=== PATIENT | female | born 1985 | race American Indian/Alaskan Native ===

== ENCOUNTER 2016-11-12 14:13 | Emergency (ER) | payer SELFPAY ==
--- NOTE | 2016-11-12 15:23 | Emergency Department Report ---
Chief Complaint: Dizziness Stated Complaint: DIZZINESS/DEHYDRATION/EMESIS/SOB Time Seen by Provider: 11/12/16 15:22 - HPI History of Present Illness: Patient here complaining of dizziness and vomiting 5 days. She says she is unable to tolerate anything by mouth. She says she hasn't had a menstrual cycle started 2 months. Denies any urinary burning or frequency but report urgency. She reports abdominal and back pain that crampy at 9 out of 10. She says she feels feverish. Denies any vaginal bleeding or discharge. - ROS Review of Systems: All systems are negative unless stated in HPI above - Exam Vital Signs: Vital Signs 11/12/16 14:57 Temperature 98.3 F Pulse Rate 80 Respiratory 18 Rate Blood Pressure 121/90 O2 Sat by Pulse 100 Oximetry Physical Exam: Gen: This is a 31-year-old female well-nourished well-developed in no acute distress. LUNGS: CTAB. Normal work of breathing CV:S1S2. RRR GI:NTTP in all Quadrants. NL bowel sounds in all quadrants. no cva tenderness. MSE screening note: Focused history and physical exam performed. Due to findings the following was ordered:see mdm ED Medical Decision Making - Medical Decision Making Medical decision making: Patient seen by provider in triage area. Appropriate protocol activated and patient to main ED to be seen by physician. ED Disposition for MSE Condition: Stable
[2016-11-12 15:46] LABS: Basophils % (Auto) 0.4 % (0.0-1.8); Eosinophils % (Auto) 0.4 % (0.0-4.3); Hematocrit 41.6 % (30.3-42.9); Hemoglobin 14.1 gm/dl (10.1-14.3); Mean Corpuscular HGB Conc 34 % (30-34); Mean Corpuscular Hemoglobin 30 pg (28-32); Mean Corpuscular Volume 88 fl (79-97); Platelet Count 283 K/mm3 (140-440); Red Blood Count 4.74 M/mm3 (3.65-5.03); White Blood Count 5.3 K/mm3 (4.5-11.0)
[2016-11-12 16:29] LABS: Amylase 90 units/L (27-131); Blood Urea Nitrogen 10 mg/dL (7-17); Calcium 9.5 mg/dL (8.4-10.2); Carbon Dioxide 22 mmol/L (22-30); Chloride 96.4 mmol/L (98-107); Glucose 96 mg/dL (65-100); Lipase 20 units/L (13-60); Potassium 3.6 mmol/L (3.6-5.0); Sodium 136 mmol/L (137-145)
[2016-11-12 16:31] LABS: Anion Gap 21 mmol/L
[2016-11-12 16:34] LABS: Bilirubin,Urine NEG (Negative); Blood,Urine NEG (Negative); Ketones,Urine 80 mg/dL (Negative); Leukocyte Esterase,Urine NEG (Negative); Mucus,Urine 3+ /HPF; Nitrite,Urine NEG (Negative); Urobilinogen,Urine < 2.0 mg/dL (<2.0)
[2016-11-12] MEDS ORDERED: ZOFRAN IV ONE (20:30)
[2016-11-12] MEDS ORDERED: TYLENOL PO ONE (20:31)
--- NOTE | 2016-11-12 20:32 | Emergency Department Report ---
ED Female HPI - General Chief complaint: Dizziness Stated complaint: DIZZINESS/DEHYDRATION/EMESIS/SOB Time Seen by Provider: 11/12/16 15:22 Source: patient, RN notes reviewed Mode of arrival: Ambulatory Limitations: No Limitations - History of Present Illness Initial comments: This is a 31-year-old female, previously unknown to me. Last menstrual period is September 17. She is 3, para 2. Has a past medical history of asthma. No private OB/ [facility] doctor. Patient presents to the ER with nausea, vomiting, inability to tolerate liquid feeds, unintentional weight loss. Symptoms are constant. They've been going on for the past 5 days. They worsen when she attempts to eat and her drink. She admits to mild lower abdominal cramping, no vaginal bleeding, no right lower quadrant pain. No irritative or obstructive urinary symptoms. MD Complaint: pelvic pain -: Gradual, days(s) Severity: mild Quality: cramping Consistency: intermittent Improves with: other (rest) Worsens with: other (eating) Are you Now?: Yes Associated Symptoms: abdominal pain, nausea/vomiting, loss of appetite, weakness - Related Data Sexually active: Yes Previous Rx's Medication Instructions Recorded Last Taken Type Doxylamine/Pyridoxine HCl 1 each PO QHS PRN #30 tablet. 11/13/16 Unknown Rx [Mando Serra 10-10 mg Tablet] Vit W-Ca,Fe,FA(<1 mg) 1 each PO QDAY #30 tablet 11/13/16 Unknown Rx [ Vitamins] Allergies Allergy/AdvReac Type Severity Reaction Status Date / Time Penicillins Allergy Unknown Verified 08/15/13 19:12 ED Review of Systems ROS: Stated complaint: DIZZINESS/DEHYDRATION/EMESIS/SOB Other details as noted in HPI Constitutional: malaise. denies: weakness Eyes: denies: vision change ENT: denies: epistaxis Respiratory: denies: cough Cardiovascular: denies: chest pain Gastrointestinal: nausea, vomiting Genitourinary: denies: dysuria Musculoskeletal: as per HPI Skin: as per HPI Neurological: as per HPI, weakness Psychiatric: as per HPI ED Past Medical Hx - Past Medical History Hx Hypertension: No Hx Congestive Heart Failure: No Hx Diabetes: No Hx Deep Vein Thrombosis: No Hx Renal Disease: No Hx Sickle Cell Disease: No Hx Seizures: No Hx Asthma: Yes (albuterol last used over 1yr ago) Hx COPD: No Hx HIV: No Additional medical history: herniated disc - Surgical History Past Surgical History?: No - Social History Smoking Status: Current Every Day Smoker Substance Use Type: None - Medications Home Medications: Home Medications Medication Instructions Recorded Confirmed Last Taken Type Doxylamine/Pyridoxine HCl 1 each PO QHS PRN #30 tablet. 11/13/16 Unknown Rx [Diclegis Dr 10-10 mg Tablet] Vit W-Ca,Fe,FA(<1 mg) 1 each PO QDAY #30 tablet 11/13/16 Unknown Rx [ Vitamins] ED Physical Exam - General Limitations: No Limitations General appearance: alert, in no apparent distress - Head Head exam: Present: atraumatic, normocephalic - Eye Eye exam: Present: normal appearance, EOMI. Absent: nystagmus - ENT ENT exam: Present: normal exam, normal orophraynx, mucous membranes moist - Neck Neck exam: Present: normal inspection - Respiratory Respiratory exam: Present: normal lung sounds bilaterally. Absent: respiratory distress, wheezes, rales, rhonchi, stridor, chest wall tenderness - Cardiovascular Cardiovascular Exam: Present: regular rate, normal rhythm, normal heart sounds. Absent: bradycardia, tachycardia, irregular rhythm, systolic murmur, diastolic murmur, rubs, gallop - GI/Abdominal GI/Abdominal exam: Present: soft, normal bowel sounds. Absent: distended, tenderness, guarding, rebound, rigid, pulsatile mass - External exam: Present: normal external exam Speculum exam: Present: normal speculum exam. Absent: vaginal bleeding Bi-manual exam: Present: normal bi-manual exam, other (during the gynecologic examination, I am escorted by nurse JL SILVERMAN). Absent: cervical motion tendernes, adnexal tenderness, adnexal mass, uterine enlargement, uterine tenderness - Extremities Exam Extremities exam: Present: normal inspection, full ROM, normal capillary refill. Absent: tenderness, pedal edema, joint swelling, calf tenderness - Back Exam Back exam: Present: normal inspection, full ROM. Absent: tenderness, CVA tenderness (R), CVA tenderness (L), muscle spasm, paraspinal tenderness, vertebral tenderness - Neurological Exam Neurological exam: Present: alert, oriented X3, normal gait (normal heel-to- garcia. No pass pointing. Negative pronator drift.), other (Extraocular movements intact. Tongue midline. No facial droop. Facial sensation intact to light touch in the V1, V2, V3 distribution bilaterally. 5 and 5 strength in 4 extremities.. Sensation is intact to light touch in 4 extremities.). Absent : motor sensory deficit - Psychiatric Psychiatric exam: Present: normal affect, normal mood - Skin Skin exam: Present: warm, dry, intact, normal color. Absent: rash ED Course Vital Signs 11/12/16 11/12/16 11/12/16 14:57 18:06 19:04 Temperature 98.3 F Pulse Rate 80 77 Respiratory 18 16 Rate Blood Pressure 121/90 Blood Pressure 106/70 [Left] O2 Sat by Pulse 100 100 100 Oximetry 11/12/16 11/12/16 11/12/16 19:05 19:11 19:14 Temperature Pulse Rate Respiratory Rate Blood Pressure 116/67 116/67 116/67 Blood Pressure [Left] O2 Sat by Pulse 100 100 100 Oximetry 11/12/16 11/12/16 11/12/16 19:15 19:21 19:23 Temperature Pulse Rate Respiratory Rate Blood Pressure 108/68 108/68 108/68 Blood Pressure [Left] O2 Sat by Pulse 100 94 Oximetry 11/12/16 11/12/16 11/12/16 19:25 19:30 19:35 Temperature Pulse Rate Respiratory Rate Blood Pressure 108/68 117/76 117/76 Blood Pressure [Left] O2 Sat by Pulse 98 100 100 Oximetry 11/12/16 11/12/16 11/12/16 19:41 19:45 19:51 Temperature Pulse Rate Respiratory Rate Blood Pressure 117/76 117/76 117/76 Blood Pressure [Left] O2 Sat by Pulse 100 100 100 Oximetry 11/12/16 11/12/16 11/12/16 19:55 20:00 20:05 Temperature Pulse Rate Respiratory Rate Blood Pressure 117/76 106/65 108/68 Blood Pressure [Left] O2 Sat by Pulse 100 100 100 Oximetry 11/12/16 11/12/16 11/12/16 20:11 20:15 20:21 Temperature Pulse Rate Respiratory Rate Blood Pressure 108/68 104/62 104/62 Blood Pressure [Left] O2 Sat by Pulse 100 100 100 Oximetry 11/12/16 11/12/16 11/12/16 20:25 20:30 20:35 Temperature Pulse Rate Respiratory Rate Blood Pressure 104/62 119/75 119/75 Blood Pressure [Left] O2 Sat by Pulse 95 100 100 Oximetry 11/12/16 11/12/16 11/12/16 20:41 20:45 20:50 Temperature Pulse Rate Respiratory Rate Blood Pressure 119/75 127/103 127/103 Blood Pressure [Left] O2 Sat by Pulse 100 100 100 Oximetry 11/12/16 11/12/16 11/12/16 20:57 21:01 21:05 Temperature Pulse Rate Respiratory Rate Blood Pressure 127/103 126/102 127/103 Blood Pressure [Left] O2 Sat by Pulse 100 99 100 Oximetry 11/12/16 11/12/16 11/12/16 21:11 21:15 21:21 Temperature Pulse Rate Respiratory Rate Blood Pressure 127/103 116/74 116/74 Blood Pressure [Left] O2 Sat by Pulse 100 100 100 Oximetry 11/12/16 11/12/16 11/12/16 21:25 21:30 21:35 Temperature Pulse Rate Respiratory Rate Blood Pressure 116/74 104/59 104/59 Blood Pressure [Left] O2 Sat by Pulse 100 100 100 Oximetry 11/12/16 11/12/16 11/12/16 21:41 21:45 21:51 Temperature Pulse Rate Respiratory Rate Blood Pressure 104/59 114/66 114/66 Blood Pressure [Left] O2 Sat by Pulse 100 100 100 Oximetry 11/12/16 11/12/16 11/12/16 21:55 22:00 22:05 Temperature Pulse Rate Respiratory Rate Blood Pressure 114/66 109/67 109/67 Blood Pressure [Left] O2 Sat by Pulse 100 100 100 Oximetry 11/12/16 11/12/16 11/12/16 22:11 22:15 22:21 Temperature Pulse Rate Respiratory Rate Blood Pressure 109/67 111/72 111/72 Blood Pressure [Left] O2 Sat by Pulse 100 89 Oximetry - Reevaluation(s) Reevaluation #1: 11/12/16 22:00 Differential diagnosis: , ectopic , nausea and vomiting , hyperemesis Assessment and plan: 31-year-old female with generalized weakness, nausea, vomiting, mild unintentional weight loss, urinalysis with positive ketones. Most likely inspection of nausea and vomiting versus hyperemesis. She is afebrile with reassuring vital signs. Neurologic exam is unremarkable. Abdomen is benign. Gynecologic exam is benign. She will be given Zofran, 2 L of D5 half normal and pelvic ultrasound is pending. We will reassess. Reevaluation #2: 11/13/16 01: patient feels much improved. She is able to tolerate liquid feeds. No emesis. Ultrasound demonstrates intrauterine that appears to be within normal limits, with a nonspecific left ovarian cyst. Abdominal exam benign on repeat examination. The patient will be discharged with nausea medication, vitamins, instructions to follow up with outpatient TRAVEL CONSULTANT. Of note, the patient had a prolonged stay in the emergency department because it took a very long time for her ultrasound to be performed, the very long time for her ultrasound to be interpreted. ED Medical Decision Making - Lab Data Result diagrams: 11/12/16 15:35 11/12/16 15:35 Vital Signs 11/12/16 11/12/16 11/12/16 14:57 18:06 19:04 Temperature 98.3 F Pulse Rate 80 77 Respiratory 18 16 Rate Blood Pressure 121/90 Blood Pressure 106/70 [Left] O2 Sat by Pulse 100 100 100 Oximetry 11/12/16 11/12/16 11/12/16 19:05 19:11 19:15 Temperature Pulse Rate Respiratory Rate Blood Pressure 116/67 116/67 108/68 Blood Pressure [Left] O2 Sat by Pulse 100 100 Oximetry 11/12/16 19:21 Temperature Pulse Rate Respiratory Rate Blood Pressure 108/68 Blood Pressure [Left] O2 Sat by Pulse 100 Oximetry Lab Results 11/12/16 11/12/16 11/12/16 Range/Units 15:35 15:35 15:35 WBC 5.3 (4.5-11.0) K/mm3 RBC 4.74 (3.65-5.03) M/mm3 Hgb 14.1 (10.1-14.3) gm/dl Hct 41.6 (30.3-42.9) % MCV 88 (79-97) fl MCH 30 (28-32) pg MCHC 34 (30-34) % RDW 13.0 L (13.2-15.2) % Plt Count 283 (140-440) K/mm3 Lymph % (Auto) 29.7 (13.4-35.0) % [place] % (Auto) 9.9 H (0.0-7.3) % Eos % (Auto) 0.4 (0.0-4.3) % Baso % (Auto) 0.4 (0.0-1.8) % Lymph # 1.6 (1.2-5.4) K/mm3 [place] # 0.5 (0.0-0.8) K/mm3 Eos # 0.0 (0.0-0.4) K/mm3 Baso # 0.0 (0.0-0.1) K/mm3 Seg Neutrophils % 59.6 (40.0-70.0) % Seg Neutrophils # 3.2 (1.8-7.7) K/mm3 Sodium 136 L (137-145) mmol/L Potassium 3.6 (3.6-5.0) mmol/L Chloride 96.4 L (98-107) mmol/L Carbon Dioxide 22 (22-30) mmol/L Anion Gap 21 mmol/L BUN 10 (7-17) mg/dL Creatinine 0.5 L (0.7-1.2) mg/dL Estimated GFR > 60 ml/min BUN/Creatinine Ratio 20.00 % Glucose 96 (65-100) mg/dL Calcium 9.5 (8.4-10.2) mg/dL Magnesium (1.7-2.3) mg/dL Amylase 90 (27-131) units/L Lipase 20 (13-60) units/L HCG, Qual (Negative) Urine Color (Yellow) Urine Turbidity (Clear) Urine pH (5.0-7.0) Ur Specific Fisher (1.003-1.030) Urine Protein (Negative) mg/dL Urine Glucose (UA) (Negative) mg/dL Urine Ketones (Negative) mg/dL Urine Blood (Negative) Urine Nitrite (Negative) Urine Bilirubin (Negative) Urine Urobilinogen (<2.0) mg/dL Ur Leukocyte Esterase (Negative) Urine WBC (Auto) (0.0-6.0) /HPF Urine RBC (Auto) (0.0-6.0) /HPF U Epithel Cells (Auto) (0-13.0) /HPF Urine Mucus /HPF Blood Type Antibody Screen 11/12/16 11/12/16 11/12/16 Range/Units 15:36 16:06 20:45 WBC (4.5-11.0) K/mm3 RBC (3.65-5.03) M/mm3 Hgb (10.1-14.3) gm/dl Hct (30.3-42.9) % MCV (79-97) fl MCH (28-32) pg MCHC (30-34) % RDW (13.2-15.2) % Plt Count (140-440) K/mm3 Lymph % (Auto) (13.4-35.0) % [place] % (Auto) (0.0-7.3) % Eos % (Auto) (0.0-4.3) % Baso % (Auto) (0.0-1.8) % Lymph # (1.2-5.4) K/mm3 [place] # (0.0-0.8) K/mm3 Eos # (0.0-0.4) K/mm3 Baso # (0.0-0.1) K/mm3 Seg Neutrophils % (40.0-70.0) % Seg Neutrophils # (1.8-7.7) K/mm3 Sodium (137-145) mmol/L Potassium (3.6-5.0) mmol/L Chloride (98-107) mmol/L Carbon Dioxide (22-30) mmol/L Anion Gap mmol/L BUN (7-17) mg/dL Creatinine (0.7-1.2) mg/dL Estimated GFR ml/min BUN/Creatinine Ratio % Glucose (65-100) mg/dL Calcium (8.4-10.2) mg/dL Magnesium (1.7-2.3) mg/dL Amylase (27-131) units/L Lipase (13-60) units/L HCG, Qual Positive (Negative) Urine Color Joy (Yellow) Urine Turbidity Slightly-cloudy (Clear) Urine pH 5.0 (5.0-7.0) Ur Specific Fisher 1.033 H (1.003-1.030) Urine Protein 30 mg/dl (Negative) mg/dL Urine Glucose (UA) Neg (Negative) mg/dL Urine Ketones 80 (Negative) mg/dL Urine Blood Neg (Negative) Urine Nitrite Neg (Negative) Urine Bilirubin Neg (Negative) Urine Urobilinogen < 2.0 (<2.0) mg/dL Ur Leukocyte Esterase Neg (Negative) Urine WBC (Auto) 1.0 (0.0-6.0) /HPF Urine RBC (Auto) 3.0 (0.0-6.0) /HPF U Epithel Cells (Auto) 6.0 (0-13.0) /HPF Urine Mucus 3+ /HPF Blood Type O POSITIVE Antibody Screen Negative 11/12/16 Range/Units 20:48 WBC (4.5-11.0) K/mm3 RBC (3.65-5.03) M/mm3 Hgb (10.1-14.3) gm/dl Hct (30.3-42.9) % MCV (79-97) fl MCH (28-32) pg MCHC (30-34) % RDW (13.2-15.2) % Plt Count (140-440) K/mm3 Lymph % (Auto) (13.4-35.0) % [place] % (Auto) (0.0-7.3) % Eos % (Auto) (0.0-4.3) % Baso % (Auto) (0.0-1.8) % Lymph # (1.2-5.4) K/mm3 [place] # (0.0-0.8) K/mm3 Eos # (0.0-0.4) K/mm3 Baso # (0.0-0.1) K/mm3 Seg Neutrophils % (40.0-70.0) % Seg Neutrophils # (1.8-7.7) K/mm3 Sodium (137-145) mmol/L Potassium (3.6-5.0) mmol/L Chloride (98-107) mmol/L Carbon Dioxide (22-30) mmol/L Anion Gap mmol/L BUN (7-17) mg/dL Creatinine (0.7-1.2) mg/dL Estimated GFR ml/min BUN/Creatinine Ratio % Glucose (65-100) mg/dL Calcium (8.4-10.2) mg/dL Magnesium 1.9 (1.7-2.3) mg/dL Amylase (27-131) units/L Lipase (13-60) units/L HCG, Qual (Negative) Urine Color (Yellow) Urine Turbidity (Clear) Urine pH (5.0-7.0) Ur Specific Fisher (1.003-1.030) Urine Protein (Negative) mg/dL Urine Glucose (UA) (Negative) mg/dL Urine Ketones (Negative) mg/dL Urine Blood (Negative) Urine Nitrite (Negative) Urine Bilirubin (Negative) Urine Urobilinogen (<2.0) mg/dL Ur Leukocyte Esterase (Negative) Urine WBC (Auto) (0.0-6.0) /HPF Urine RBC (Auto) (0.0-6.0) /HPF U Epithel Cells (Auto) (0-13.0) /HPF Urine Mucus /HPF Blood Type Antibody Screen - Radiology Data Radiology results: report reviewed, image reviewed Obstetrics ultrasound demonstrates intrauterine , no subchorionic hemorrhage, heartbeat 151 bpm, nonspecific left-sided ovarian cyst. Critical care attestation.: If time is entered above; I have spent that time in minutes in the direct care of this critically ill patient, excluding procedure time. ED Disposition Clinical Impression: Nausea/vomiting in Disposition: DISCHARGED TO HOME OR SELFCARE Is pt being admited?: No Does the pt Need Aspirin: No Condition: Stable Instructions: Hyperemesis Gravidarum (ED) Additional Instructions: Laboratory studies were essentially unremarkable. Ultrasound demonstrated appropriate intrauterine . Symptoms most likely coming from nausea and vomiting of . Take nausea medication, vitamins as directed. Follow-up with an TRAVEL CONSULTANT doctor within the next week. I have given you numerous names, phone numbers, addresses of local TRAVEL CONSULTANT doctors. Follow up with anyone of the listed physicians. Cultures were sent today, results will be available the next 3-5 days. Have a primary care doctor contact medical records department to obtain culture results. Return to the ER right away with new, worsening or different symptoms , fevers or chills, intractable nausea or vomiting, inability to tolerate liquid feeds. Prescriptions: Doxylamine/Pyridoxine HCl [Mando Serra 10-10 mg Tablet] 1 each PO QHS PRN #30 tablet. PRN Reason: Nausea Vit W-Ca,Fe,FA(<1 mg) [ Vitamins] 1 each PO QDAY #30 tablet Referrals: PRIMARY MD ARA [Primary Care Provider] - 3-5 Days SUMEET BRAVO MD [Staff Physician] - 3-5 Days [facility] [Provider Group] - 3-5 Days [facility] [Provider Group] - 3-5 Days
[2016-11-12] MEDS ORDERED: D5/0.45NS 1,000 ML IV SCH (21:00)
[2016-11-12 22:28] VITALS: BP 111/72
--- NOTE | 2016-11-13 01:06 | Ultrasound Report ---
FINAL REPORT PROCEDURE: US OB TRANSVAGINAL TECHNIQUE: Real-time transvaginal sonography of the uterus, placenta, amniotic fluid, adnexa, and fetus was performed with image documentation. Measurements were obtained to determine age/size. M-mode Doppler was used to document heartbeat. CPT 20799 HISTORY: with pelvic and lower abdominal pain. COMPARISON: No prior studies are available for comparison. FINDINGS: There is a single live intrauterine . This is seen as a single intrauterine gestational sac containing a yolk sac and a pole. Cardiac activity is seen within the pole at 151 beats per minute. Based on crown-rump length this fetus is measuring 7 weeks and 4 days which gives a due date of June 27, 2017 based on this exam. There no prior studies to compare. There is no ultrasound evidence of subchorionic hemorrhage. The right ovary measures 4.1 x 2.8 x 2.1 centimeters and shows no ultrasound abnormality. The left ovary measures 4.1 x 2.5 x 2.6 centimeters. There is a nonspecific 2.7 centimeter cyst in the left ovary. IMPRESSION: 1. There is a single live intrauterine . Based on crown-rump length the fetus is measuring 7 weeks and 4 days which gives a due date of June 27, 2017 based on this exam. There no prior studies to compare. 2. heart rate noted at 151 beats per minute. 3. There is no ultrasound evidence of subchorionic hemorrhage. 4. There is a nonspecific 2.7 centimeter cyst in the left ovary.
--- NOTE | 2016-11-13 01:13 | Ultrasound Report ---
FINAL REPORT PROCEDURE: US OB TRANSABDOMINAL WITH DOPPLER < = 14 WEEKS FETUS TECHNIQUE: Real-time transabdominal sonography of the uterus, placenta, amniotic fluid, adnexa, and fetus was performed with image documentation. Measurements were obtained to determine age/size. M-mode Doppler was used to document heartbeat. CPT 69110 HISTORY: with pelvic and lower abdominal pain. COMPARISON: No prior studies are available for comparison. FINDINGS: There is a single live intrauterine . This is seen as a single intrauterine gestational sac containing a yolk sac and a pole. Cardiac activity is seen within the pole at 151 beats per minute. Based on crown-rump length this fetus is measuring 7 weeks and 4 days which gives a due date of June 27, 2017 based on this exam. There no prior studies to compare. There is no ultrasound evidence of subchorionic hemorrhage. The right ovary measures 4.1 x 2.8 x 2.1 centimeters and shows no ultrasound abnormality. The left ovary measures 4.1 x 2.5 x 2.6 centimeters. There is a nonspecific 2.7 centimeter cyst in the left ovary. IMPRESSION: 1. There is a single live intrauterine . Based on crown-rump length the fetus is measuring 7 weeks and 4 days which gives a due date of June 27, 2017 based on this exam. There no prior studies to compare. 2. heart rate noted at 151 beats per minute. 3. There is no ultrasound evidence of subchorionic hemorrhage. 4. There is a nonspecific 2.7 centimeter cyst in the left ovary.
== END 2016-11-13 01:31 | disposition home or self-care (01) ==
LOC: ED 14:13
DX: O21.0 Mild hyperemesis gravidarum (principal); Z3A.01 Less than 8 weeks gestation of pregnancy; J45.909 Unspecified asthma, uncomplicated; F17.200 Nicotine dependence, unspecified, uncomplicated; Z88.0 Allergy status to penicillin
CPT/HCPCS: 36415; 76801; 76817; 80048; 81001; 82150; 82962; 83690; 83735; 84702; 84703; 85025; 86850; 86900; 86901; 87591; 96361; 96374; 99285; J2405

== ENCOUNTER 2017-06-27 00:35 | Inpatient (IN) | payer MEDICAID ==
[2017-06-27] MEDS: LACTATED RINGERS 1,000 ML IV SCH ×2 (04:00→08:00)
[2017-06-27] MEDS ORDERED: LACTATED RINGERS 1,000 ML ONE (04:34)
[2017-06-27] MEDS ORDERED: XYLOCAINE 2% INFILTRATI ONE (04:36)
[2017-06-27] MEDS ORDERED: BRETHINE IVP PRN (04:36)
[2017-06-27] MEDS ORDERED: BRETHINE SUB-Q PRN (04:36)
[2017-06-27] MEDS ORDERED: ePHEDrine SULFATE IV PRN ×2 (04:36→07:23)
[2017-06-27] MEDS ORDERED: MINERAL OIL PO PRN (04:36)
--- NOTE | 2017-06-27 04:43 | History and Physical Report ---
History of Present Illness Date of examination: 06/27/17 Date of admission: 06/27/17 03:53 Chief complaint: Pt. complains of leaking of water from vagina since yesterday at 3:50 PM. History of present illness: 32 year old female presents to L&D complaining of leaking of water from vagina since 03:50 yesterday. Patient denies vaginal bleeding. Patient reports active movement. Past History Past Medical History: asthma (as a child; not symptomatic; does not use inhaler) Past Surgical History: no surgical history [employer] History: herpes (Patient denies outbreaks; she denies prodromal symptoms; taking Valtrex suppression) Family/Genetic History: other (Has a child with achondroplasia dwarfism; [facility] consulted and released pt. ) Social history: lives with family. denies: smoking, alcohol abuse, prescription drug abuse, IV drug use - Obstetrical History Expected Date of Delivery: 06/27/17 Actual Gestation: 40 Week(s) 0 Day(s) : 2 Medications and Allergies Allergies Allergy/AdvReac Type Severity Reaction Status Date / Time Penicillins Allergy Unknown Verified 08/15/13 19:12 Home Medications Medication Instructions Recorded Confirmed Last Taken Type Doxylamine/Pyridoxine HCl 1 each PO QHS PRN #30 tablet. 11/13/16 Unknown Rx [Mando Serra 10-10 mg Tablet] Vit W-Ca,Fe,FA(<1 mg) 1 each PO QDAY #30 tablet 11/13/16 Unknown Rx [ Vitamins] Review of Systems Constitutional: no fever, no chills Eyes: deferred Cardiovascular: no chest pain, no edema, no shortness of breath Respiratory: no cough Gastrointestinal: no nausea, no vomiting Genitourinary: leakage of fluid, no vaginal bleeding, no dysuria, no genital sores Integumentary: no rash, no pruritis Neurological: no headaches - Vital Signs Vital signs: Vital Signs Pulse Pulse Ox 81 99 06/27/17 00:58 06/27/17 00:58 Temp Pulse Resp BP Pulse Ox 68 110/62 99 06/27/17 04:18 06/27/17 04:18 06/27/17 01:01 - Physical Exam Cardiovascular: Regular rate, No murmurs Lungs: Positive: Clear to auscultation Abdomen: Positive: normal appearance, soft. Negative: distention, tenderness, guarding Genitourinary (Female): Positive: normal external genitalia, normal perenium. Negative: perineal/vulvar lesions Vagina: Positive: other (Pooling of thin fluid in vagina, yellowish green tint) Cervix: Positive: other (2-3/70/-2/cephalic). Negative: lesion Uterus: Positive: enlarged. Negative: tender Extremities: Positive: normal. Negative: edema - Obstetrical FHR: category 1 Uterine Contraction Monitor Mode: External Cervical Dilatation: 2.5 Cervical Effacement Percentage: 70 station: -2 Uterine Contraction Frequency (min): every 4-5 minutes Results Result Diagrams: 06/27/17 04:20 Wet prep negative. Fern test negative. Assessment and Plan A: at 40 weeks gestation. SROM over 12 hours ago. Thin meconium stained amniotic fluid. Early labor. P: Admit. Augment labor with Pitocin. Continue Valtrex suppression of HSV. Anticipate .
[2017-06-27] MEDS ORDERED: PITOCin/NS 20 UNIT/1000ML DRIP 20 UNITS/1,000 ML BAG IV SCH (05:00)
[2017-06-27] MEDS ORDERED: PITOCin/NS 30 UNIT/500ML 30 UNITS/500 ML BAG IV SCH ×2 (05:00)
[2017-06-27 05:02] LABS: Hematocrit 34.6 % (30.3-42.9); Hemoglobin 11.5 gm/dl (10.1-14.3); Mean Corpuscular HGB Conc 33 % (30-34); Mean Corpuscular Hemoglobin 28 pg (28-32); Mean Corpuscular Volume 84 fl (79-97); Platelet Count 214 K/mm3 (140-440); Red Blood Count 4.12 M/mm3 (3.65-5.03); Red Cell Distribution Width 14.7 % (13.2-15.2); White Blood Count 6.2 K/mm3 (4.5-11.0)
[2017-06-27] MEDS ORDERED: SUBLIMAZE IV ONE (05:34)
[2017-06-27] MEDS ORDERED: ePHEDrine SULFATE ONE (07:09)
[2017-06-27] MEDS ORDERED: NARCAN 2 MG/2 ML IV PRN (07:23)
--- NOTE | 2017-06-27 07:23 | Anesthesia Consultation ---
Anesthesia Consult and Med Hx Date of service: 06/27/17 - Airway Anesthetic Teeth Evaluation: Good ROM Head & Neck: Adequate Mental/Hyoid Distance: Adequate Mallampati Class: Class II Intubation Access Assessment: Probably Good - Pulmonary Exam CTA: Yes - Cardiac Exam Cardiac Exam: RRR - Pre-Operative Health Status ASA Pre-Surgery Classification: ASA2 Proposed Anesthetic Plan: Epidural, Spinal - Pulmonary Hx Asthma: Yes (albuterol last used over 1yr ago) COPD: No Hx Pneumonia: No - Cardiovascular System Hx Hypertension: No - Central Nervous System Hx Seizures: No Hx Psychiatric Problems: No - Endocrine Hx Renal Disease: No Hx End Stage Renal Disease: No Hx Hypothyroidism: No Hx Hyperthyroidism: No - Hematic Hx Anemia: No Hx Sickle Cell Disease: No - Other Systems Hx Alcohol Use: No Hx Obesity: Yes - Additional Comments Anesthesia Medical History Comments: +IUP
--- NOTE | 2017-06-27 07:59 | Event Note ---
Date: 06/27/17 Patient is now comfortable after receiving epidural. SVE 6-7/95/-1. Reassuring heart rate tracing.
[2017-06-27] MEDS ORDERED: fentaNYL-BUPIV 2 MCG/ML-0.125% 200 MCG/100 ML BAG EPIDURAL SCH (08:00)
[2017-06-27] MEDS ORDERED: BENADRYL PO PRN (09:23)
[2017-06-27] MEDS ORDERED: TYLENOL PO PRN (09:23)
[2017-06-27] MEDS ORDERED: TUCKS PAD TP PRN (09:23)
[2017-06-27] MEDS ORDERED: LANSINOH TP PRN (09:23)
[2017-06-27] MEDS ORDERED: DULCOLAX PR PRN (09:23)
[2017-06-27] MEDS ORDERED: MILK OF MAGNESIA PO PRN (09:23)
[2017-06-27] MEDS ORDERED: PHENERGAN PR PRN (09:23)
--- NOTE | 2017-06-27 09:30 | Procedure Note ---
OB Delivery Note - Delivery Date of Delivery: 06/27/17 Surgeon: NORMA DOS SANTOS Estimated blood loss: 200cc - Vaginal Delivery position: OA Intrapartum events: meconium Delivery induction: none Delivery augmentation: pitocin Delivery monitor: external FHT Route of delivery: Delivery placenta: spontaneous Episiotomy: none Delivery laceration: none Anesthesia: epidural Delivery comments: Spontaneous vaginal delivery of liveborn female over intact perineum with epidural anesthesia. Time of delivery was 09:05. weight 6 lbs 13 oz ; apgars 8/9. Thin meconium stained amniotic fluid; NICU was present for delivery and baby was taken immediately to [facility] team. Spontaneous cry and respirations. Spontaneous delivery of intact placenta and membranes by wright mechanism. EBL 200 mL. Mother and baby stable in birthing room. No lacerations noted on careful inspection of vulva/perineum/vagina. Sponge counts correct.
[2017-06-27] MEDS ORDERED: VALTREX PO SCH (10:00)
[2017-06-27] MEDS ORDERED: SODIUM CHLORIDE FLUSH SYRINGE 10 ML IV NR (10:00)
[2017-06-27] MEDS: MOTRIN PO SCH ×3 (12:25→23:49)
[2017-06-27] MEDS: NORCO 5/325 PO PRN ×2 (16:55→23:49)
[2017-06-27 20:27] LABS: Hematocrit 32.4 % (30.3-42.9); Hemoglobin 10.5 gm/dl (10.1-14.3)
[2017-06-28] MEDS: MOTRIN PO SCH ×4 (04:00→22:14)
--- NOTE | 2017-06-28 09:24 | Progress Note ---
Assessment and Plan A: PPD #1 - stable P; Plan discharge today Subjective - Subjective Date of service: 06/28/17 Principal diagnosis: Patient reports: appetite normal [place]: doing well Objective - Vital Signs Latest vital signs: Vital Signs Temp Pulse Resp BP 06/28/17 07:58 98.0 F 66 18 110/74 06/28/17 01:00 97.5 F L 67 18 116/63 06/27/17 23:49 18 06/27/17 20:45 98.2 F 74 16 120/71 06/27/17 16:31 98.0 F 66 18 121/76 06/27/17 11:35 98.6 F 70 18 119/64 06/27/17 10:52 77 121/65 06/27/17 10:37 67 120/89 06/27/17 10:22 96 H 116/71 06/27/17 10:07 75 127/79 06/27/17 09:53 79 119/59 Intake and Output 06/27/17 06/28/17 06/28/17 22:59 06:59 14:59 Intake Total 360 360 Output Total 1400 Balance -1040 360 Intake: Oral 120 Intake, Free Water 240 360 Output: Urine 1400 Void 1400 Other: Total, Intake Amount 120 Total, Output Amount 400 # Voids Void 1 1 # Bowel Movements 1 - Exam Breasts: Present: deferred, mass Cardiovascular: Present: Regular rate Abdomen: Present: soft Vulva: both: normal Uterus: Present: fundal height below umbilicus Deep Tendon Reflex Grade: Normal +2
--- NOTE | 2017-06-28 09:24 | Discharge Summary ---
Providers - Providers Date of Admission: 06/27/17 03:53 Date of discharge: 06/28/17 Attending physician: OMAR LYON MD Primary care physician: OMAR LYON MD Hospitalization Reason for admission: active labor Delivery: Episiotomy: none Laceration: none complications: none Discharge diagnosis: IUP at term delivered baby: female Condition at discharge: Good Disposition: DC-01 TO HOME OR SELFCARE Plan - Provider Discharge Summary Activity: routine, no sex for 6 weeks, no strenuous exercise Diet: routine Instructions: routine Additional instructions: [] Smoking cessation referral if applicable(refer to patient education folder for contact #) [] Refer to [facility] Booklet Call your doctor immediately for: * Fever > 100.5 * Heavy vaginal bleeding ( >1 pad per hour) * Severe persistent headache * Shortness of breath * Reddened, hot, painful area to leg or breast * Drainage or odor from incision. * Keep incision clean and dry at all times and follow doctor's instructions regarding bathing/showering - Follow up plan Follow up: [facility] [Provider Group] - 6 Weeks
[2017-06-29] MEDS: MOTRIN PO SCH (05:48)
[2017-06-29 09:07] VITALS: BP 122/82
[2017-06-29] MEDS ORDERED: M-M-R II VACCINE SUB-Q ONE (10:00)
== END 2017-06-29 12:30 | disposition home or self-care (01) | DRG 774 ==
LOC: TRG 00:35 → LD 03:53 → OB 11:36
PROVIDERS: ADMIT Obstetrics & Gynecology; ATTEND Obstetrics & Gynecology
PROC: 10E0XZZ Delivery of Products of Conception, External Approach (ICD-10-PCS; principal; 2017-06-27)
PROC: 3E0S3CZ (ICD-10-PCS; 2017-06-27)
PROC: 00HU33Z Insertion of Infusion Device into Spinal Canal, Percutaneous Approach (ICD-10-PCS; 2017-06-27)
PROC: 3E0234Z Introduction of Serum, Toxoid and Vaccine into Muscle, Percutaneous Approach (ICD-10-PCS; 2017-06-29)
DX: O77.0 Labor and delivery complicated by meconium in amniotic fluid (principal); O98.513 Other viral diseases complicating pregnancy, third trimester; O99.214 Obesity complicating childbirth; O99.52 Diseases of the respiratory system complicating childbirth; J45.909 Unspecified asthma, uncomplicated; E66.9 Obesity, unspecified; Z3A.40 40 weeks gestation of pregnancy; Z37.0 Single live birth; Z88.0 Allergy status to penicillin; Z68.32 Body mass index [BMI] 32.0-32.9, adult; Z23 Encounter for immunization; B00.9 Herpesviral infection, unspecified; Z79.899 Other long term (current) drug therapy
CPT/HCPCS: 36415; 85014; 85018; 85027; 86850; 86900; 86901; 87210; 88307; 90707; 99211; A6250; G0463; J2590; J3010; J7120